=== PATIENT | male | born 1955 | race Caucasian/White ===

== ENCOUNTER 2018-03-25 11:34 | Observation (INO) | payer BC ==
[2018-03-25] MEDS ORDERED: NITROGLYCERIN 0.4MG SL TABLET #25 BTL SL PRN (12:03)
[2018-03-25] MEDS ORDERED: ASPIRIN 81 MG CHEWABLE TABLET PO ONE (12:03)
--- NOTE | 2018-03-25 12:03 | Emergency Department Record ---
History of Present Illness - General Chief Complaint: Chest Pain Stated Complaint: CHEST DISCOMFORT Time Seen by Provider: 03/25/18 11:43 Source: Patient Mode of Arrival: Ambulatory Limitations: No limitations - History of Present Illness Initial Comments: 3 days ago pt developed cp across his chest that was squeezing during working out. he also had heartburn.. he had no other symptoms. it got better w asa. 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 both his parents had cabgs Complaint: Chest pain Onset/Timin -: Days(s) Onset: During exertion Pain Location: Left chest Severity: Mild Severity scale (1-10): 1 Quality: Aching, Dull Consistency: Constant Improves With: Nothing Worsens With: Nothing - Related Data Allergies Allergy/AdvReac Type Severity Reaction Status Date / Time No Known Drug Allergies Allergy Verified 03/25/18 11:42 Travel Screening - Travel/Exposure Within Last 30 Days Have you traveled within the last 30 days?: No Review of Systems Reviewed: No additional complaints except as noted below Constitutional: Reports: As per HPI. Denies: Chills, Fever, Malaise, Night sweats, Weakness, Weight change Eyes: Reports: As per HPI. Denies: Eye discharge, Eye pain, Photophobia, Vision change ENT: Reports: As per HPI. Denies: Congestion, Dental pain, Ear pain, Epistaxis , Hearing loss, Throat pain Respiratory: Reports: As per HPI. Denies: Cough, Dyspnea, Hemoptysis, Stridor, Wheezes Cardiovascular: Reports: As per HPI. Denies: Arrhythmia, Chest pain, Dyspnea on exertion, Edema, Murmurs, Orthopnea, Palpitations, Paroxysmal nocturnal dyspnea, Rheumatic Fever, Syncope Endocrine: Reports: As per HPI. Denies: Fatigue, Heat or cold intolerance, Polydipsia, Polyuria Gastrointestinal: Reports: As per HPI. Denies: Abdominal pain, Constipation, Diarrhea, Hematemesis, Hematochezia, Melena, Nausea, Vomiting Genitourinary: Reports: As per HPI. Denies: Dysuria, Frequency, Hematuria, Incontinence, Retention, Testicular pain, Testicular mass, Urgency Musculoskeletal: Reports: As per HPI. Denies: Arthralgia, Back pain, Gout, Joint swelling, Myalgia, Neck pain Skin: Reports: As per HPI. Denies: Bruising, Change in color, Change in hair/ nails, Lesions, Pruritus, Rash Neurological: Reports: As per HPI. Denies: Abnormal gait, Confusion, Headache, Numbness, Paresthesias, Seizure, Tingling, Tremors, Vertigo, Weakness Psychiatric: Reports: As per HPI. Denies: Anxiety, Auditory hallucinations, Depression, Homicidal thoughts, Suicidal thoughts, Visual hallucinations Hematological/Lymphatic: Reports: As per HPI. Denies: Anemia, Blood Clots, Easy bleeding, Easy bruising, Swollen glands Past Medical History - SOCIAL HISTORY Smoking Status: Former smoker Alcohol Use: None Drug Use: None - RESPIRATORY Hx Respiratory Disorders: No - CARDIOVASCULAR Hx Cardio Disorders: Yes Comment:: high cholesterol - NEURO Hx Neuro Disorders: No - GI Hx GI Disorders: Yes Hx of Polyps: Yes - Hx Genitourinary Disorders: No - ENDOCRINE Hx Endocrine Disorders: No - MUSCULOSKELETAL Hx Musculoskeletal Disorders: No - PSYCH Hx Psych Problems: No - HEMATOLOGY/ONCOLOGY Hx Hematology/Oncology Disorders: Yes Hx Cancer: Yes (had cancerous polyp removed from colon) Hx Chemotherapy: No Hx Radiation Therapy: No Family Medical History Any Significant Family History?: Yes *Cancer Comment: Aunt-colon cancer Hx Heart Disease: Father, Mother Physical Exam - General General Appearance: Alert, Oriented x3, Cooperative, No acute distress - Head Head exam: Normal inspection - Eye Eye exam: Normal appearance, PERRL, EOMI Pupils: Normal accommodation - ENT ENT exam: Normal exam, Mucous membranes moist, Normal external ear exam, Normal orophraynx Ear exam: Normal external inspection. negative: External canal tenderness Nasal Exam: Normal inspection. negative: Discharge, Sinus tenderness Mouth exam: Normal external inspection, Tongue normal Teeth exam: Normal inspection. negative: Dental caries Throat exam: Normal inspection. negative: Tonsillar erythema, Tonsillar exudate - Neck Neck exam: Normal inspection, Full ROM. negative: Tenderness - Respiratory Respiratory exam: Normal lung sounds bilaterally. negative: Respiratory distress - Cardiovascular Cardiovascular Exam: Regular rate, Normal rhythm, Normal heart sounds - GI/Abdominal GI/Abdominal exam: Soft, Normal bowel sounds. negative: Tenderness - Rectal Rectal exam: Deferred - exam: Deferred - Extremities Extremities exam: Normal inspection, Full ROM, Normal capillary refill. negative: Tenderness - Back Back exam: Reports: Normal inspection, Full ROM. Denies: Muscle spasm, Rash noted, Tenderness - Neurological Neurological exam: Alert, CN II-XII intact, Normal gait, Oriented X3 - Psychiatric Psychiatric exam: Normal affect, Normal mood - Skin Skin exam: Dry, Intact, Normal color, Warm Course Vital Signs 03/25/18 11:38 Temperature 98.4 F Pulse Rate 71 Respiratory 18 Rate Blood Pressure 160/98 Pulse Ox 98 Medical Decision Making - Lab Data Result diagrams: 03/25/18 11:50 03/25/18 11:50 Disposition Disposition: Admit Clinical Impression: Chest pain Qualifiers: Chest pain type: unspecified Qualified Code(s): R07.9 - Chest pain, unspecified Decision to Admit: Admit from ER Decision to Admit Date: 03/25/18 Decision to Admit Time: 14:39 Forms: Patient Portal Access Quality - Quality Measures Quality Measures: N/A - Blood Pressure Screening Does Patient Have Any of the Following: No Blood Pressure Classification: Hypertensive Reading Systolic Measurement: 160 Diastolic Measurement: 98 Screening for High Blood Pressure: < First Hypertensive BP, F/U Documented > [ G8950] First Hypertensive Follow-up Interventions: Follow-up with rescreen GT 1 day and LT 4 weeks.
[2018-03-25 12:16] LABS: BASO % 0.4 % (0-6); EOS % 0.6 % (0-6); GRAN % 65.2 % (47-80); HEMATOCRIT 40.1 % (42.0-52.0); HEMOGLOBIN 13.2 gm/dl (14.0-18.0); LYMPH % 25.9 % (16-45); MEAN CELL VOLUME 83.9 fl (81-97); MEAN CORPUSCULAR HEMOGLOBIN 27.6 pg (27-33); MEAN CORPUSCULAR HGB CONC 32.9 g/dl (32-36); MEAN PLATELET VOLUME 8.8 fl (7.4-10.4); MONO % 7.9 % (0-9); PLATELET COUNT 318 K/uL (130-400); RED BLOOD COUNT 4.78 M/uL (4.40-5.70); WHITE BLOOD COUNT W/O DIFF 5.1 K/uL (4.2-12.2)
[2018-03-25 12:25] LABS: BLOOD UREA NITROGEN 11 mg/dL (8-23)
[2018-03-25 12:26] LABS: CREATININE 0.9 mg/dL (0.7-1.2); EST GLOMERULAR FILTRATION RATE > 60 mL/min; TOTAL PROTEIN 7.1 g/dL (6.6-8.7)
[2018-03-25 12:28] LABS: GLUCOSE,RANDOM 117 mg/dL (74-109)
[2018-03-25 12:31] LABS: ALB/GLOB RATIO 1.5 (1.1-1.8); ALBUMIN 4.3 g/dL (4.0-5.0); ALKALINE PHOSPHATASE 77 U/L (40-129); ALT/SGPT 24 U/L (<41); AST/SGOT 24 U/L (10.0-50.0); CREATINE PHOSPHOKINASE 137 U/L (39-308); PARTIAL THROMBOPLASTIN TIME 28.2 SECONDS (24.5-39.1)
[2018-03-25 12:33] LABS: CKMB 3.4 ng/mL (<6.73)
--- NOTE | 2018-03-25 15:46 | History & Physical ---
History of Present Illness - Date of Service Date of Service for History & Physical: 03/25/18 - History of Present Illness Admitting Diagnosis: chest pain History of Present Illness: 62 yo male presents for chest pain x 4 days. PMH hyperlipidemia. Pt reports sudden onset chest pain thursday while working out. Describes pain as sore, left chest that resolved with rest and aspirin. Pain returned today as tightness in left chest. Denies any radiation. Pt , daughter, and family friend convinced him to be seen in ER for evaluation of CP. Pt had seen Dr Post (cardiology) 10 years or more ago with negative stress test but no follow up since then. Pt has hx of elevated cholesterol but both parents have hx of CABG. ER- Temp 98.4F, HR 71, RR 18, BP 160/98 and 134/72, 98% RA Given ASA 324mg PO WBC 5.1, Hgb 13.2, Hct 40.1, Plt 318 NA 143, K 3.9, Cl 101, CO225, BUN 11, creatinine 0.9, GFR>60, glucose 117 D-Dimer 0.59, follow up CTA chest neg for PE trop <0.010, CK-MB 3.4, CK 137 Pt in no distress and states he is surprised he has to be admitted, as he thought he would go home and follow up with cards for stress test. Pt educated on the need to get serial EKG and trops. Pt accepted information and will continue with the admission. Denies any current concerns, no edema, no active chest pain at this time. POC serial card enzymes, EKGs and cards consult tomorrow with probable stress test. PCP Mary Post (card) Travel Screening - Travel/Exposure Within Last 30 Days Have you traveled within the last 30 days?: No Review of Systems Constitutional: Reports: As per HPI. Denies: Chills, Fever, Malaise, Night sweats, Weakness, Weight change Eyes: Reports: As per HPI. Denies: Eye discharge, Eye pain, Photophobia, Vision change ENT: Reports: As per HPI. Denies: Congestion, Dental pain, Ear pain, Epistaxis , Hearing loss, Throat pain Respiratory: Reports: As per HPI. Denies: Cough, Dyspnea, Hemoptysis, Stridor, Wheezes Cardiovascular: Reports: As per HPI. Denies: Arrhythmia, Chest pain, Dyspnea on exertion, Edema, Murmurs, Orthopnea, Palpitations, Paroxysmal nocturnal dyspnea, Rheumatic Fever, Syncope Endocrine: Reports: As per HPI. Denies: Fatigue, Heat or cold intolerance, Polydipsia, Polyuria Gastrointestinal: Reports: As per HPI. Denies: Abdominal pain, Constipation, Diarrhea, Hematemesis, Hematochezia, Melena, Nausea, Vomiting Genitourinary: Reports: As per HPI. Denies: Dysuria, Frequency, Hematuria, Incontinence, Retention, Testicular pain, Testicular mass, Urgency Musculoskeletal: Reports: As per HPI. Denies: Arthralgia, Back pain, Gout, Joint swelling, Myalgia, Neck pain Skin: Reports: As per HPI. Denies: Bruising, Change in color, Change in hair/ nails, Lesions, Pruritus, Rash Neurological: Reports: As per HPI. Denies: Abnormal gait, Confusion, Headache, Numbness, Paresthesias, Seizure, Tingling, Tremors, Vertigo, Weakness Psychiatric: Reports: As per HPI. Denies: Anxiety, Auditory hallucinations, Depression, Homicidal thoughts, Suicidal thoughts, Visual hallucinations Hematological/Lymphatic: Reports: As per HPI. Denies: Anemia, Blood Clots, Easy bleeding, Easy bruising, Swollen glands Past Medical History - SOCIAL HISTORY Smoking Status: Former smoker Alcohol Use: None Drug Use: None - RESPIRATORY Hx Respiratory Disorders: No - CARDIOVASCULAR Hx Cardio Disorders: Yes Comment:: high cholesterol - NEURO Hx Neuro Disorders: No - GI Hx GI Disorders: Yes Hx of Polyps: Yes - Hx Genitourinary Disorders: No - ENDOCRINE Hx Endocrine Disorders: No - MUSCULOSKELETAL Hx Musculoskeletal Disorders: No - PSYCH Hx Psych Problems: No - HEMATOLOGY/ONCOLOGY Hx Hematology/Oncology Disorders: Yes Hx Cancer: Yes (had cancerous polyp removed from colon) Hx Chemotherapy: No Hx Radiation Therapy: No Family Medical History Any Significant Family History?: Yes *Cancer Comment: Aunt-colon cancer Hx Heart Disease: Father, Mother H&P Meds/Allergies - Allergies Allergies: Allergies Allergy/AdvReac Type Severity Reaction Status Date / Time No Known Drug Allergies Allergy Verified 03/25/18 11:42 - Active Medications Active Medications: Current Medications Nitroglycerin (Nitrostat 0.4mg) 0.4 mg SL Q5MIN PRN PRN Reason: CHEST PAIN Physical Exam - Vital Signs Vital Signs: Vital Signs - Last 24 Hrs Temp Pulse Pulse Resp BP BP Pulse Ox 03/25/18 14:50 73 18 134/90 03/25/18 12:50 69 18 134/72 03/25/18 11:38 98.4 F 71 18 160/98 98 - General General Appearance: Alert, Oriented x3, Cooperative, No acute distress Limitations: No limitations - Head Head exam: Normal inspection - Eye Eye exam: Normal appearance, PERRL, EOMI Pupils: Normal accommodation - ENT ENT exam: Normal exam, Mucous membranes moist, Normal external ear exam, Normal orophraynx Ear exam: Normal external inspection. negative: External canal tenderness Nasal Exam: Normal inspection. negative: Discharge, Sinus tenderness Mouth exam: Normal external inspection, Tongue normal Teeth exam: Normal inspection. negative: Dental caries Throat exam: Normal inspection. negative: Tonsillar erythema, Tonsillar exudate - Neck Neck exam: Normal inspection, Full ROM. negative: Tenderness - Respiratory Respiratory exam: Normal lung sounds bilaterally. negative: Respiratory distress - Cardiovascular Cardiovascular Exam: Regular rate, Normal rhythm, Normal heart sounds Peripheral Pulses: 2+: Radial (R), Radial (L), Dorsalis Pedis (R), Dorsalis Pedis (L) - GI/Abdominal GI/Abdominal exam: Soft, Normal bowel sounds. negative: Guarding, Tenderness - Rectal Rectal exam: Deferred - exam: Deferred - Extremities Extremities exam: Normal inspection, Full ROM, Normal capillary refill. negative: Tenderness - Back Back exam: Reports: Normal inspection, Full ROM. Denies: Muscle spasm, Rash noted, Tenderness - Neurological Neurological exam: Alert, CN II-XII intact, Normal gait, Oriented X3 - Psychiatric Psychiatric exam: Normal affect, Normal mood - Skin Skin exam: Dry, Intact, Normal color, Warm Results - Labs Result Diagrams: 03/25/18 11:50 03/25/18 11:50 Labs Last 24 Hours: Laboratory Results - last 24 hr 03/25/18 03/25/18 03/25/18 11:50 11:50 11:50 WBC 5.1 RBC 4.78 Hgb 13.2 L Hct 40.1 L MCV 83.9 MCH 27.6 MCHC 32.9 RDW 13.0 Plt Count 318 MPV 8.8 Gran % 65.2 Lymphocytes % 25.9 Monocytes % 7.9 Eosinophils % 0.6 Basophils % 0.4 APTT 28.2 D-Dimer 0.59 Sodium 143 Potassium 3.9 Chloride 101 Carbon Dioxide 25.0 Anion Gap 17.0 H BUN 11 Creatinine 0.9 Estimated GFR > 60 Random Glucose 117 H Calcium 9.1 Total Bilirubin 0.30 AST 24 ALT 24 Alkaline Phosphatase 77 Creatine Kinase 137 CK-MB (CK-2) 3.4 Troponin T < 0.010 Total Protein 7.1 Albumin 4.3 Globulin 2.8 Albumin/Globulin Ratio 1.5 - Imaging and Cardiology CT scan - chest Status: Report reviewed (auido clip reviewed) VTE H&P Assessment - Risk for VTE Risk for VTE: Yes Risk Level: Moderate Risk Assessment Date: 03/25/18 Risk Assessment Time: 15:47 VTE Orders Placed or Will Be Placed: Yes Plan - Detailed Diagnosis and Plan (1) Chest pain Current Visit: Yes Status: Acute Qualifiers: Chest pain type: unspecified Qualified Code(s): R07.9 - Chest pain, unspecified Base Code: R07.9 - CHEST PAIN, UNSPECIFIED Comment: 03/25/18 -neg enzymes -denies pain (currently) - EKG NSR -POC serial enzymes, ekgs, card consult in the AM -cont cardiac monitoring (2) DVT prophylaxis Current Visit: Yes Status: Acute Base Code: [id number] - Comment: 03/25/18 -lovenox 40mg qd (3) Full code status Current Visit: Yes Status: Acute Base Code: Z78.9 - OTHER SPECIFIED HEALTH STATUS Comment: 03/25/18 full code
[2018-03-25] MEDS ORDERED: ACETAMINOPHEN 500 MG TABLET PO PRN (16:06)
[2018-03-25] MEDS ORDERED: TEMAZEPAM 15 MG CAPSULE PO PRN (16:06)
[2018-03-25] MEDS ORDERED: SIMVASTATIN 20 MG TABLET PO SCH (22:00)
--- NOTE | 2018-03-26 07:28 | CT ANGIOGRAM REPORT ---
EXAM: EMERGENCY CTA OF THE CHEST WITH CONTRAST HISTORY: CHEST PAIN WITH DULL ACHE LEFT SIDE FOR THREE DAYS. TECHNIQUE: CTA of the chest was performed following the intravenous administration of 78 ml of Omnipaque 350 as the IV contrast. Post processing on an independent workstation was performed with coronal and sagittal 3D MIP series obtained. Comparison: No prior CT. Comparison is made with the two view chest x-ray of . FINDINGS: No definite PE identified. No thoracic aortic aneurysm or dissection is seen. No pleural or pericardial effusion evident. There are enumerable tiny low attenuation foci in the liver. The largest of these is located inferiorly in the posteromedial aspect of the liver measuring about 1.7 cm in size. This has a CT density of 2 consistent with a cyst. All of the others appear to be less than 1 cm in size, too small to accurately measures, but presumably represent enumerable tiny hepatic cysts. Comparison with any old CT scans that include the liver would be useful in this regard. No pneumothorax is evident. No acute infiltrate identified. There is an approximately 7 mm calcified granuloma in the left lower lobe within the left base also seen on the prior chest x-ray. There is some calcified left hilar and mediastinal nodes as well consistent with old granulomatous disease. IMPRESSION: 1. NO DEFINITE PE IDENTIFIED. 2. CALCIFIED GRANULOMA LEFT LOWER LOBE WITH CALCIFIED LEFT HILAR AND MEDIASTINAL NODES CONSISTENT WITH OLD GRANULOMATOUS DISEASE. 3. ENUMERABLE TINY LOW ATTENUATION FOCI SCATTERED THROUGHOUT THE LIVER. THE LARGEST OF THESE MEASURES 1.[address] DENSITY OF 2 CONSISTENT WITH A CYST. THE OTHERS ARE ALL LESS THAN 1 CM IN SIZE, TOO SMALL TO ACCURATELY CHARACTERIZE ALTHOUGH PRESUMABLY ADDITIONAL TINY HEPATIC CYSTS. COMPARISON WITH ANY PRIOR CT SCANS THAT INCLUDE THE LIVER WOULD BE USEFUL IN THIS REGARD. JOB NUMBER: [id number] [facility]
[2018-03-26] MEDS ORDERED: ENOXAPARIN 40 MG/0.4 ML SYR SQ SCH (10:00)
[2018-03-26] MEDS ORDERED: ASPIRIN 325 MG TAB ENTERIC-COATED PO SCH (10:00)
--- NOTE | 2018-03-26 11:04 | Discharge Summary ---
Providers Discharge Summary Date: 03/26/18 Date of admission: 03/25/18 14:55 Expected Date of Discharge: 03/26/18 Attending physician: ELIANA WALLACE Primary care physician: RASHEED ORELLANA D.O. Consults: Consult Orders 03/25/18 16:06 Consult NOW Consulting Provider: Zi Adamson Physician Instructions: Reason For Exam: cp Physical Exam - Vital Signs Vital Signs: Vital Signs - Last 24 Hrs Temp Pulse Pulse Pulse Resp BP BP 03/26/18 10:57 108 H 16 03/26/18 09:27 97.7 F 73 18 155/91 03/26/18 06:00 97.5 F L 71 16 153/92 03/26/18 02:00 97.5 F L 73 16 144/93 03/25/18 22:30 78 03/25/18 22:00 97.7 F 74 18 150/92 03/25/18 18:00 97.1 F L 69 16 156/93 03/25/18 15:18 97.7 F 69 18 153/93 03/25/18 14:50 73 18 134/90 03/25/18 12:50 69 18 134/72 03/25/18 11:38 98.4 F 71 18 160/98 Pulse Ox 03/26/18 10:57 98 03/26/18 09:27 100 03/26/18 06:00 98 03/26/18 02:00 97 03/25/18 22:30 99 03/25/18 22:00 97 03/25/18 18:00 99 03/25/18 15:18 98 03/25/18 14:50 03/25/18 12:50 03/25/18 11:38 98 - General General Appearance: Alert, Oriented x3, Cooperative, No acute distress Limitations: No limitations - Head Head exam: Normal inspection - Eye Eye exam: Normal appearance, PERRL, EOMI Pupils: Normal accommodation - ENT ENT exam: Normal exam, Mucous membranes moist, Normal external ear exam, Normal orophraynx Ear exam: Normal external inspection. negative: External canal tenderness Nasal Exam: Normal inspection. negative: Discharge, Sinus tenderness Mouth exam: Normal external inspection, Tongue normal Teeth exam: Normal inspection. negative: Dental caries Throat exam: Normal inspection. negative: Tonsillar erythema, Tonsillar exudate - Neck Neck exam: Normal inspection, Full ROM. negative: Tenderness - Respiratory Respiratory exam: Normal lung sounds bilaterally. negative: Respiratory distress - Cardiovascular Cardiovascular Exam: Regular rate, Normal rhythm, Normal heart sounds Peripheral Pulses: 2+: Radial (R), Radial (L), Dorsalis Pedis (R), Dorsalis Pedis (L) - GI/Abdominal GI/Abdominal exam: Soft, Normal bowel sounds. negative: Guarding, Tenderness - Rectal Rectal exam: Deferred - exam: Deferred - Extremities Extremities exam: Normal inspection, Full ROM, Normal capillary refill. negative: Tenderness - Back Back exam: Reports: Normal inspection, Full ROM. Denies: Muscle spasm, Rash noted, Tenderness - Neurological Neurological exam: Alert, CN II-XII intact, Normal gait, Oriented X3 - Psychiatric Psychiatric exam: Normal affect, Normal mood - Skin Skin exam: Dry, Intact, Normal color, Warm Hospitalization - Hospitalization Admission Diagnosis: chest pain - Problem List/Discharge Diagnosis (1) Chest pain Current Visit: Yes Status: Resolved Discharge Diagnosis: Chest pain type: unspecified Qualified Code(s): R07.9 - Chest pain, unspecified Base Code: R07.9 - CHEST PAIN, UNSPECIFIED Comment: 03/25/18 -neg enzymes -denies pain (currently) - EKG NSR -POC serial enzymes, ekgs, card consult in the AM 03/26/18 -remains CP free -neg EKG other than LVH potential -neg enzymes -Stress test completed with Dr Adamson, nuc stress to be completed oupt -start lisinopril 2.5mg qd per cards -d/c this AM -cont cardiac monitoring (2) DVT prophylaxis Current Visit: Yes Status: Resolved Base Code: [id number] - Comment: 03/25/18 -lovenox 40mg qd (3) Full code status Current Visit: Yes Status: Acute Base Code: Z78.9 - OTHER SPECIFIED HEALTH STATUS Comment: 03/25/18 full code - Hospitalization Course Disposition: Home, Self-Care Hospital Course: 62 yo male presents for chest pain x 4 days. PMH hyperlipidemia. Pt reports sudden onset chest pain thursday while working out. Describes pain as sore, left chest that resolved with rest and aspirin. Pain returned today as tightness in left chest. Denies any radiation. Pt , daughter, and family friend convinced him to be seen in ER for evaluation of CP. Pt had seen Dr Post (cardiology) 10 years or more ago with negative stress test but no follow up since then. Pt has hx of elevated cholesterol but both parents have hx of CABG. ER- Temp 98.4F, HR 71, RR 18, BP 160/98 and 134/72, 98% RA Given ASA 324mg PO WBC 5.1, Hgb 13.2, Hct 40.1, Plt 318 NA 143, K 3.9, Cl 101, CO225, BUN 11, creatinine 0.9, GFR>60, glucose 117 D-Dimer 0.59, follow up CTA chest neg for PE trop <0.010, CK-MB 3.4, CK 137 Pt in no distress and states he is surprised he has to be admitted, as he thought he would go home and follow up with cards for stress test. Pt educated on the need to get serial EKG and trops. Pt accepted information and will continue with the admission. Denies any current concerns, no edema, no active chest pain at this time. POC serial card enzymes, EKGs and cards consult tomorrow with probable stress test. PCP Mary Post (card) Procedures: Imaging and X-Rays 03/25/18 13:26 CHEST CTA w contrast [CTA] Stat Cardiology Procedures 03/25/18 12:03 Stunt Driver NOW EKG NOW 03/25/18 16:06 EKG QDX2@0600 03/26/18 10:56 Stress EKG/STD Treadmill ONCE Abnormal Labs: Abnormal Lab Results 03/25/18 03/25/18 Range/Units 11:50 11:50 Hgb 13.2 L (14.0-18.0) gm/dl Hct 40.1 L (42.0-52.0) % Anion Gap 17.0 H (7-16) Random Glucose 117 H (74-109) mg/dL Condition at Discharge: (2) Stable Discharge Diagnosis: CP Discharge Medications - Discharge Medications Prescriptions: Lisinopril 2.5 mg PO DAILY 7 Days #7 tab Home Medications: Ambulatory Orders Simvastatin 40 mg PO DAILY #90 01/12/17 [Last Taken 03/24/18] Acetaminophen [Tylenol 500Mg Tab] 1,000 mg PO Q6H PRN tablet 03/26/18 [Last Taken Unknown] Lisinopril 2.5 mg PO DAILY 7 Days #7 tab 03/26/18 [Last Taken Unknown] Discharge Plan - Discharge Instructions Additional Instructions: START taking Lisinopril 2.5mg once daily for elevated blood pressure/ hypertension. This medication is a direct request from Dr Adamson cardiology. Follow up with cardiology for nuclear stress test outpt at their new office. You have been provided a map to get to the new office. Lisinopril is a blood pressure medicine that is taken once daily. Side effects of any new medication is a risk, such as rash, hives, difficulty breathing. A rare side effect of this medication is swelling of the mouth or tongue. If this happens, STOP the medication and go to ER. Follow up with PCP to continue with this medication and to have your blood pressure monitored while on treatment. Go to ER if you experience chest pain especially if it radiates to left neck or left arm, shortness of breath, or diaphoresis (excessive sweating). Quality Measures - Quality Measures Quality Measures: Documentation of Current Medications in Medical Record, Screening for High Blood Pressure and F/U Documented - Current Medications Quality Measure: Measure #130: Documentation of Current Medications Documentation of Current Medications: <Current Medications Documented/Reviewed> [G8427] - Blood Pressure Screening Quality Measure: Screening for High Blood Pressure and Follow-Up Documented Does Patient Have Any of the Following: Active Dx of HTN Blood Pressure Classification: Hypertensive Reading Systolic Measurement: 160 Diastolic Measurement: 98 Screening for High Blood Pressure: < First Hypertensive BP, F/U Documented > [ G8950] First Hypertensive Follow-up Interventions: Follow-up with rescreen GT 1 day and LT 4 weeks., Referral to alternative/primary care provider. - Elder Abuse Suspicion Index EASI Reference Information: De PHILLIPS, Monica C, Rocio D, Danny Potter.Development and validation of a tool to assist physicians identification of elder abuse: The Elder Abuse Suspicion Index (EASI ). Journal of Elder Abuse and Neglect, 2008; 20 (3): 276-300.
--- NOTE | 2018-03-29 10:51 | Medical Records Consult ---
DATE OF CONSULTATION: 03/26/2018 HISTORY OF PRESENT ILLNESS: The patient is a 62-year-old male who was sent to the emergency room for evaluation of chest discomfort. Thursday he was working out including using a punching bag and noted the onset of what he described as indigestion/heartburn and chest pain in the mid sternal area. He took an aspirin and it went away and has not recurred. Since then, though, he has had a vague discomfort, funny feeling that has been present. It hurts when he takes a deep breath. He was able to walk Thursday and Thursday his usual mile or so at lunchtime without any problems. He called his family doctor and described what was going on, and he was told to go to the emergency room, which he did yesterday. He was admitted overnight. EKG does not show any acute changes. Enzymes are negative for infarction. Risk factors include dyslipidemia as well as a strong family history. PAST MEDICAL HISTORY: He was evaluated about 10 years ago at our office and had a negative stress test. ALLERGIES: None. SOCIAL HISTORY: Smoked very briefly many years ago. FAMILY HISTORY: Parents had bypass surgery. One brother had bypass surgery. REVIEW OF SYSTEMS: A 10-point review of systems reviewed and confirmed. Pertinent positives in HPI, otherwise negative. PHYSICAL EXAMINATION: VITAL SIGNS: Blood pressure 130/80, pulse 70, respiratory rate 18. GENERAL: Alert and oriented x3. Cooperative. No acute distress. HEENT: Normal inspection. Eyes [place], EOMI. Buccal mucosa is pink and moist. Uvula is midline upon retraction. Tongue is normal. NECK: Supple. No thyromegaly, lymphadenopathy, or carotid bruits. RESPIRATORY: Lungs are clear to auscultation and percussion. CARDIOVASCULAR: Regular rhythm, rate. Normal heart sounds. No gallops, lifts, or heaves are noted. PMI is not palpable. GASTROINTESTINAL: Abdomen is soft, nontender. RECTAL: Deferred. GENITOURINARY: Deferred. EXTREMITIES: Pulses are equal in upper and lower extremities. No cyanosis, edema, or clubbing. NEUROLOGIC: Cranial nerves II-XII intact. Patient oriented x3. PSYCHIATRIC: Normal affect. Normal mood. SKIN: No rash or abnormal skin findings. IMPRESSION: 1. Probable gastroesophageal reflux disease. 2. Family history of heart disease. 3. Dyslipidemia. PLAN: Proceed with a regular treadmill test. Recommendations will be based on the results. MTDD
--- NOTE | 2018-03-29 11:00 | Stress Test Report ---
DATE OF STUDY: 03/26/2018 Resting blood pressure 140/80, resting EKG with sinus rhythm present with prominent QRS suggestive of possible underlying left ventricular hypertrophy. The patient exercised on a motorized treadmill using the Humza protocol exercising approximately 10 minutes equivalent of 10-11 METS. Heart rate rise to 160, maximum blood pressure 190/96. Test was discontinued because of shortness of breath. There was slight millimeter ST-segment depression in the inferior leads approaching 2 mm in the lateral leads. Return to baseline approximately 2 minutes post exercise. IMPRESSION: This is an abnormal positive stress test of 10-11 METS without chest pain in the presence of probable underlying LVH. Clinical correlation is recommended. Nuclear imaging is suggested. MTDD
== END 2018-03-26 11:20 | disposition home or self-care (01) ==
LOC: ER 11:34 → MEDSURG 14:55
PROVIDERS: ADMIT Internal Medicine; ATTEND Internal Medicine
DX: R07.9 Chest pain, unspecified (principal); E78.00 Pure hypercholesterolemia, unspecified; Z87.891 Personal history of nicotine dependence; Z85.038 Personal history of other malignant neoplasm of large intestine
CPT/HCPCS: 71275; 80053; 82550; 82553; 84484; 85025; 85379; 85730; 93005; 93010; 93017; 94760; 99217; 99220; 99285